=== PATIENT | female | born 1970 | race Caucasian/White ===

== ENCOUNTER 2017-09-16 02:37 | Observation (INO) | payer BC ==
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
[2017-09-16] MEDS ORDERED: fentaNYL 100 MCG/2 ML SDV IVPUSH ONE ×2 (04:12→07:19)
[2017-09-16] MEDS ORDERED: Ondansetron 4 MG/2 ML SDV IVPUSH ONE (04:13)
[2017-09-16 04:37] LABS: CHLORIDE,CL 107 mmol/L (98-107); SODIUM,NA 143 mmol/L (136-145)
[2017-09-16] MEDS ORDERED: Ondansetron 4 MG/2 ML SDV IVPUSH PRN (04:47)
[2017-09-16] MEDS ORDERED: Lactated Ringers 1,000 ML IV SCH (07:30)
[2017-09-16] MEDS ORDERED: Levothyroxine 100 MCG Tab PO SCH (07:30)
[2017-09-16] MEDS: Acetaminophen 325 MG Tab PO PRN ×2 (07:43→11:48)
[2017-09-16] MEDS ORDERED: Sodium Chloride 0.9% 10 ML Syringe FLUSH PRN (07:45)
[2017-09-16] MEDS ORDERED: Metoprolol Tartrate 25 MG Tab PO SCH (08:00)
[2017-09-16] MEDS ORDERED: Lisinopril 5 MG Tab PO SCH (08:00)
[2017-09-16] MEDS ORDERED: Omeprazole 20 MG Cap.CR PO SCH (08:00)
[2017-09-16] MEDS ORDERED: metFORMIN 500 MG Tab PO SCH (08:30)
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
== END 2017-09-16 14:40 | disposition home or self-care (01) ==
LOC: LL.ED 02:37 → LL.MS 04:29
PROVIDERS: ADMIT Family Medicine; ATTEND Family Medicine
DX: S06.0X9A Concussion with loss of consciousness of unspecified duration, initial encounter (principal); V86.95XA Unspecified occupant of 3- or 4- wheeled all-terrain vehicle (ATV) injured in nontraffic accident, initial encounter; Z79.84 Long term (current) use of oral hypoglycemic drugs; Z79.899 Other long term (current) drug therapy; Z98.1 Arthrodesis status
CPT/HCPCS: 36415; 70450; 72125; 80048; 80305-QW; 83605; 85025; 96361; 96374; 96375; 96376; 99285; A9270-GY; G0378; G0480; J2405; J3010; J7120